=== PATIENT | female | born 1975 | race Caucasian/White ===

== ENCOUNTER 2019-09-01 09:26 | Day surgery (SDC) | payer BC, SELFPAY ==
[2019-08-26 08:13] VITALS: BMI 27.3
[2019-09-01] VITALS (16 sets, daily range): BP systolic 93–130; BP diastolic 61–83; PULSE 61–92; RESP 10–18; TEMP 36.3–36.9; O2SAT 94–99; BMI 26.1
--- NOTE | 2019-09-01 | DI.RAD.S_ITS ---
PROCEDURE: XR LUMBAR SPINE 2-3V INDICATIONS: L4-5 LAMINECTOMY TECHNIQUE: 2 views of the lumbar spine were acquired. COMPARISON: [facility], MR, MR LUMBAR SPINE WITH/WITHOUT CONTRAST, 07/31/2019, 10:10. [facility], CR, L-SPINE 2-3 VIEWS, 04/19/2016, 15:54. FINDINGS: Bones: Dorsal right-sided approach operative devices have been placed, L4-L5 posterolateral spinal level, for reported laminectomy. Expected approach for this surgical access. Soft tissues: Overlying bowel gas pattern is normal. No suspicious soft tissue calcifications. IMPRESSION: Expected positioning of the surgical devices for right-sided L4-L5 laminectomy/discectomy procedure. Dictated by: Mitch Triana M.D. on 09/01/2019 at 13:53 Approved by: Mitch Triana M.D. on 09/01/2019 at 13:55
[2019-09-01] MEDS: LACTATED RINGERS 1,000 ML 42 ML IV ×2 (10:15→12:16)
--- NOTE | 2019-09-01 10:33 | P.OP_ITS ---
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 They had failed conservative management and requested operative intervention. Risks and benefits of surgery were discussed and appropriate consents were obtained. Surgeon: Benjamin Coyle Store Coordinator: Ella Shannon Anesthesia Type: General Operative Notes Findings: None Closure Type: primary Specimen(s): none sent Estimated Blood Loss (mL): 15 Procedure in detail: Patient was brought to the operating room and intubated on the table. A time-out was performed. There were rolled over the well-padded prone position on the Kenneth table. The back was prepped and draped in standard sterile fashion. Preoperative antibiotics were given. Using fluoroscopy, a 3 cm incision was made to the well-marked right of the midline at the L4-5 level, utilizing her previous incision. We used Bovie to come down to and split the fascia. We then used the NuVasive MaXcess dilators with fluoroscopy and then opened our retractors. The soft tissue was cleared off with Bovie with care taken at the junction from her previous laminotomy with the remaining lamina, a marker was placed, an x-ray was taken to confirm positioning. We then brought in the microscope. A combination of high-speed bur and Kerrison were used to perform a revision [id number] hemilaminotomy and hemifacetectomy. We had to dissect off the scar tissue and work our way around until we were able to isolate the nerve root and the dura. We carefully r etracted the dura and cleared more scar tissue adhesions and exposed the disc. This was cleared with bipolar. A scalpel used to perform an annulotomy and a pituitary was used to perform the diskectomy. We removed two very large fragments The ball probe was swept underneath the dura along the disc to make sure there were no further loose fragments. This was also placed into the disc and moved around to make sure there were no further loose fragments. Once everything was adequately decompressed, the wound was copiously irrigated. An epidural catheter was filled with 100 mcg of fentanyl and 8 mL of 0.25% Marcaine. The dura was carefully depressed under the laminotomy site and the catheter was advanced 6 cm cephalad. The retractor was removed and the fascia was closed. The epidural catheter was then injected without resistance and removed. Vancomycin powder was placed in the wound. Superficial and skin were closed. Sterile dressing was placed. The patient was then rolled over, tra nsferred to the stretcher, and brought to recovery room without complications. Complications: none Post-operative Condition: stable Disposition: PACU Plan for aftercare: Outpatient. Start PT in 2 weeks after follow-up visit.
--- NOTE | 2019-09-01 10:33 | PM.PREOP ---
Pre-operative Note Interval Note History & Physical reviewed/Exam performed by Physician: Yes Changes to H&P: No
[2019-09-01] MEDS: CLINDAMYCIN 900 MG/50 ML PIGGYBACK 50 MG IV (11:19)
--- NOTE | 2019-09-01 11:46 | SUR.OPER ---
Prone on spine table, head in foam head support, padded chest and pelvic supports, gel pad at knees, lower legs supported by pillows; nipples, genitalia and toes free of pressure, arms secured on foam padded arm boards at <90 degrees abduction. Tape over blanket at thigh secured to table.
[2019-09-01] MEDS: SODIUM CHLORIDE 0.9% 1,000 ML, GENTAMICIN 80 MG IRR (11:53)
[2019-09-01] MEDS: THROMBIN (RECOMBINANT) 5,000 UNIT VIAL 5000 UNIT TOP (11:54)
[2019-09-01] MEDS: VANCOMYCIN 1,000 MG VIAL 1000 MG TOP (11:54)
[2019-09-01] MEDS: BUPIVACAINE 0.25% (PF) 8 ML, fentaNYL 100 MCG INJ (12:20)
[2019-09-01] MEDS: hydrOXYzine 50 MG/ML INJ 25 MG IM (13:04)
[2019-09-01] MEDS: HYDROMORPHONE 2 MG INJ 0.5 MG IV ×4 (13:06→13:29)
[2019-09-01] MEDS: OXYCODONE/ACETAMINOPHEN 5/325 TABLET 1 TAB PO (14:07)
--- NOTE | 2019-09-01 14:10 | SUR.PHASEI ---
PT TOLERATING AROLDO ALEJANDRO AND A SNACK, STATING PAIN IS A 5/10, CONTINUE TO MEDICATE FOR LOW BACK PAIN, BACK DRESSING REMAINS DRY AND INTACT. MOVING ALL EXTREMITIES, NO NEURO DEFICITS NOTED
== END 2019-09-01 15:30 | disposition home or self-care (01) ==
PROVIDERS: PCP Family Medicine; Visit Provider Orthopaedic Surgery
PROC: (CPT 63042; principal; 2019-09-01 11:45)
DX: M51.16 Intervertebral disc disorders with radiculopathy, lumbar region (principal); Z98.890 Other specified postprocedural states; F17.210 Nicotine dependence, cigarettes, uncomplicated
CPT/HCPCS: 63042; 72100; 76000; J0330; J1100; J1170; J2405; J2704; J3010; J3410